=== PATIENT | male | born 1970 | race Hispanic/Latino ===

== ENCOUNTER 2017-03-06 10:13 | Emergency (ER) | payer OTHER ==
[2017-03-06 10:26] VITALS: BP 151/86
--- NOTE | 2017-03-06 10:46 | XRay Report ---
RIGHT ANKLE RADIOGRAPHS INDICATION: Ankle injury, pain. COMPARISON: None similar at this institution. FINDINGS: AP, lateral and oblique right ankle radiographs demonstrate intact mortise, malleoli and talar dome contour. Mild to moderate soft tissue swelling noted anterolaterally. CONCLUSION: Right ankle soft tissue swelling/injury possible without acute bony abnormality, as described. Please correlate. Thank you for the opportunity to participate in this patient's care.
[2017-03-06] MEDS ORDERED: ZOFRAN IV ONE (12:01)
[2017-03-06] MEDS ORDERED: DILAUDID IM ONE (12:01)
== END 2017-03-06 13:03 | disposition home or self-care (01) ==
LOC: ED 10:13
DX: S93.401A Sprain of unspecified ligament of right ankle, initial encounter (principal); I10 Essential (primary) hypertension; W22.8XXA Striking against or struck by other objects, initial encounter; Y93.9 Activity, unspecified; Y92.9 Unspecified place or not applicable; Y99.9 Unspecified external cause status
CPT/HCPCS: 29515; 73610; 96372; 96374; 99284; J1170; J2405